=== PATIENT | female | born 1945 | race Caucasian/White ===

== ENCOUNTER 2017-08-19 10:17 | Outpatient (CLI) | payer MEDICARE, MEDICAID ==
[2017-08-19] MEDS ORDERED: Iopamidol 370 76% 100 ML VIAL ONE (15:02)
--- NOTE | 2017-08-19 15:42 | CT ---
CT ABDOMEN AND PELVIS WITH ORAL AND IV CONTRAST: Date: 08/19/17 HISTORY: Right upper quadrant pain since cholecystectomy in August 2016. Patient was premedicated for iodin e allergy. FINDINGS: There are no previous exams for comparison. The lung bases are unremarkable. The liver, spleen, pancreas, and adrenal glands are normal. There a re cysts in both kidneys, the largest measuring 6.9 cm in the right kidney. The patient is post chol ecystectomy and hysterectomy. No free air, free fluid, or lymphadenopathy is identified in the abdom en or pelvis. There are prominent abdominal lymph nodes measuring up to 9.0 mm in short axis diamete r in the left paraaortic region. No free air or free fluid is seen in the abdomen or pelvis. The sma ll bowel loops are not abnormally dilated. A normal appearing appendix is present. No pericolonic in flammatory changes are seen. There is fecal material in the colon. There are degenerative changes in the spine. Right hip arthroplasty is present. IMPRESSION: 1. No acute process. 2. Renal cysts. 3. Prominent abdominal lymph nodes. POS: [facility]
== END 2017-08-19 10:18 | disposition home or self-care (01) ==
LOC: CT 10:17
PROVIDERS: ATTEND Internal Medicine Gastroenterology
DX: K58.9 Irritable bowel syndrome, unspecified (principal); R10.11 Right upper quadrant pain; N28.1 Cyst of kidney, acquired
CPT/HCPCS: 74177

== ENCOUNTER 2017-11-12 11:54 | Inpatient (IN) | payer MEDICARE, MEDICAID ==
[2017-11-12 12:45] LABS: Bilirubin Negative (Negative); Blood, Urine Negative (Negative); Clarity Clear (Clear); Glucose, Urine (Dipstick) Negative (Negative); Leukocyte Negative (Negative); Nitrite Negative (Negative); Protein, Urine (Dipstick) Trace mg/dL (Neg-Trace); Urobilinogen 0.2 mg/dL (0.2-1.0); pH, Urine 5.5 (5.0-9.0)
[2017-11-12 12:51] LABS: Hemoglobin 7.3 g/dL (12.0-16.0); Mean Corpuscular HGB CONC 30.7 g/dL (32.0-36.0); Mean Corpuscular Hemoglobin 23.8 pg (27.0-31.0); Mean Corpuscular Volume 77.5 fl (81.0-99.0); Mean Platelet Volume 6.6 fL (7.4-10.4); Platelet Count 237 thou/uL (130-400); RBC Distribution Width 14.1 % (11.5-14.5); Red Blood Cell (RBC) Count 3.07 mill/uL (4.20-5.40); White Blood Cell (WBC) Count 5.6 thou/uL (4.8-10.8)
[2017-11-12 13:02] LABS: ALT (SGPT) 80 U/L (8-55); AST (SGOT) 85 U/L (5-34); Albumin 3.9 g/dL (3.4-4.8); Alkaline Phosphatase 260 U/L (40-150); Anion Gap 16 mmol/L (10-20); BUN (Urea Nitrogen) 9 mg/dL (9.8-20.1); Bilirubin, Total 0.3 mg/dL (0.2-1.2); Calc. Creatinine Clearance 0 mL/min (70-130); Calcium 9.4 mg/dL (7.8-10.44); Carbon Dioxide 24 mmol/L (23-31); Chloride 104 mmol/L (98-107); Estimated GFR-MDRD 87; Globulin 2.9 g/dL (2.4-3.5); Glucose 171 mg/dL (83-110); Lipase 8 U/L (8-78); Potassium 3.6 mmol/L (3.5-5.1); Protein, Total 6.8 g/dL (6.0-8.3); Sodium 140 mmol/L (136-145)
[2017-11-12 13:03] LABS: CKMB 0.7 ng/mL (0-6.6); Troponin I Less than 0.010 ng/mL (< 0.028)
[2017-11-12 13:04] LABS: #Lymphocytes 0.9 thou/uL (1.20-3.40); #Monocytes 0.4 thou/uL (0.11-0.59); #Neutrophils 4.3 thou/uL (1.40-6.50); %Basophils 0.3 % (0.0-1.0); %Eosinophils 0.3 % (0.0-10.0); %Lymphocytes 15.5 % (21.0-51.0); %Monocytes 6.8 % (0.0-10.0); %Neutrophils 77.2 % (42.0-75.0); Hypochromia SLIGHT = 6-15 cells (100X) (0-5/hpf); MDiff Complete? YES; Microcytosis SLIGHT = 6-15 cells (100X) (0-5/hpf); Ovalocytes SLIGHT = 2-5 cells (100X) (0-1/hpf); PLT Morphology Comment Appears Adequate
[2017-11-12] MEDS ORDERED: Ondansetron HCl/PF 4 MG/2 ML Vial ONE (13:09)
--- NOTE | 2017-11-12 14:26 | CT ---
CT OF ABDOMEN AND PELVIS: Date: 11-12-17 Comparison: 08-19-17 History: Right sided back pain, right hip pain. Technique: Serial axial CT imaging at 5 mm intervals from the lung bases through the pubic symphysis without contrast. Coronal reformatted imaging obtained. FINDINGS: the lack of contrast media limits assessment of the viscera, bowel vascular structures, and for lymph adenopathy. The imaged lung bases are unremarkable. There is a hip arthroplasty on the right, stable. There is no free intraperitoneal air. Cholecystectomy clips are present. Limited assessment of the liver and spleen is unremarkable. Limited assessment of the pancreas appears grossly unremarkable. The adrenal glands and the left kidn ey demonstrate a normal CT appearance. There is a stable prominent cyst in the right kidney, measurin g up to 7 cm. Neither kidney appears obstructed. There is a small inferior cystocele noted, stable. There is new nonspecific small volume abnormal free fluid in the pelvic cul-de-sac. Limited assessment of the bowel demonstrates no evidence for obstruction. There is nonspecific inflammatory stranding of the mesenteric fat within the right abdomen including the mesenteric fat inferior and adjacent to the duodenum. This fat stranding is new when compared to the prior exam. Suboptimal assessment of the duodenum without contrast media suggests a degree of duodenal wall thick ening versus under distention. Limited assessment for lymphadenopathy demonstrates findings suspicious for lymphadenopathy in the ga strohepatic ligament, measuring up to 1.4 cm in short axis dimension. There is increased soft tissue density in the portahepatis suggesting portahepatis adenopathy, including a node ventral to the IVC o n Image 18 measuring 2.2 cm in short axis dimension. There is a probable node posterior to the left l obe of the liver on Image 18 measuring 1.8 cm in short axis dimension. Enlarged left periaortic lymph nodes are noted, stable, measuring up to 1.4 cm in short axis dimensio n. There are scattered atherosclerotic calcifications of the abdominal aorta and its branches. Osseous s tructures appear demineralized. There is significant multilevel degenerative and post-operative orellana e within the lumbar spine. Soft tissue density is noted in the aortocaval region, suggesting adenopathy in these regions as well . There is a mesenteric mass in the right midabdomen on axial image 32 measuring 1.6 cm. IMPRESSION: 1. Inflammatory fat stranding is seen involving the mesenteric fat within the right abdomen. This sug gests nonspecific infectious or inflammatory change, possibly on the basis of duodenitis. 2. Enlarged lymph nodes within the abdomen/pelvis. Mesenteric mass in the mid right abdomen, suspicio us for metastatic disease or lymphoma. 3. Findings discussed with Dr. George at 1:45 p.m. 11-12-17. POS: [facility]
[2017-11-12] MEDS ORDERED: Pantoprazole 40 MG VIAL ONE (14:33)
[2017-11-12 16:24] VITALS: BMI 20.3
[2017-11-12] MEDS ORDERED: HYDROcodone/Acetaminophen 5/325 mg Tablet PO PRN ×3 (16:36→17:27)
[2017-11-12] MEDS ORDERED: Acetaminophen 325 MG TAB PO PRN ×2 (16:36→17:27)
[2017-11-12] MEDS ORDERED: Ondansetron ODT 4 MG TAB PO PRN (17:27)
[2017-11-12] MEDS ORDERED: Ondansetron HCl/PF 4 MG/2 ML Vial IVP PRN ×2 (17:27→19:10)
[2017-11-12] MEDS: HYDROcodone/Acetaminophen 10/325 mg Tablet PO PRN ×2 (18:00→21:32)
[2017-11-12] MEDS: Sodium Chloride 0.9% 1,000 ML IV SCH (18:00)
[2017-11-12] MEDS ORDERED: Ondansetron ODT 4 MG TAB SL PRN (19:10)
[2017-11-12] MEDS: Pantoprazole 40 MG VIAL IVP SCH (20:08)
[2017-11-12] MEDS: Zolpidem Tartrate 5 MG TAB PO SCH (20:08)
[2017-11-12] MEDS: Montelukast Sodium 10 mg Tablet PO SCH (20:08)
--- NOTE | 2017-11-12 21:28 | HP ---
PRIMARY CARE PHYSICIAN: Dr. Miranda. CHIEF COMPLAINT: Abdominal pain and generalized weakness. HISTORY OF PRESENT ILLNESS: Ms. Gibbs is a very pleasant 72-year-old female who has a history of hy pertension as well as fibromyalgia. She was in her usual state of health until recently. She began having worse and worse abdominal pain. She says it was primarily in the epigastric region and to the right side going to her back. She says it started about a year ago actually and says that she had h ad a cholecystectomy, thinking that would fix the problem. However, it did not, and she says after s he had her gallbladder removed, she continued to have the abdominal pain and then she started noticin g some black stools around that time as well. She said she did not know that there was anything wron g with that and so therefore did not think much of it. She says the stools are not necessarily tarry , but they can be normal, but just dark, sometimes she has diarrhea and it is black. She also notes a decrease in her appetite as well as having some nausea and she also says she has lost 50 pounds ove r the last year and had not been attempting to lose weight. She also says that she has been feeling extremely weak and not able to do the usual things that she typically does. She said she looked at h er color in the mirror and said that she is not usually does pale and because of these reason, she we nt to the emergency room for evaluation. In the ER, she was found to be anemic with a hemoglobin of 7.3. Her last hemoglobin being about 13 about a year ago and CT scan of the abdomen demonstrated toribio e inflammatory changes in the mesentery as well as inflammation of the duodenum and some adenopathy, which was concerning. She is being admitted for further evaluation. REVIEW OF SYSTEMS: Constitutional: There have been no fevers, chills, no night sweats, but she has had a 50-pound weight loss, which is unintentional. HEENT: She denies any headaches, no dizziness, no visual changes, no sore throat, no rhinorrhea, no neck pain, no adenopathy. Pulmonary: No hemopt ysis, no cough, no wheezing. Cardiovascular: She denies any chest pain, no shortness of breath, no PND, no orthopnea. Gastrointestinal: As the history of present illness. Genitourinary: No urinary frequency, hematuria, no hesitancy. Neurologic: No focal weakness, numbness, no seizures. Psychia tric: No symptoms of anxiety or depression except she says she had been depressed about her symptoms over the last year. Skin/Integument: No skin changes. No rash. PAST MEDICAL HISTORY: Significant for allergic rhinitis, gastroesophageal reflux disease, fatty live r, hypertension, fibromyalgia, chronic low back pain, Jjahcnn-Ytwmd-Wxlhi disorder, hyperlipidemia, a nd irritable bowel syndrome. PAST SURGICAL HISTORY: She has had a cholecystectomy, spinal surgery, hysterectomy, right hip replac ement, and tonsillectomy. ALLERGIES: NSAIDs, IODINE, LIDOCAINE, ALPRAZOLAM, EPINEPHRINE KENALOG which is TRIAMCINOLONE, CEPHAL EXIN, CIPROFLOXACIN, GABAPENTIN, PROCAINE, KETOROLAC, LEVAQUIN, and PREGABALIN. SOCIAL HISTORY: She is a nonsmoker, nondrinker. She is , has 4 children. FAMILY HISTORY: Significant for diabetes mellitus. CURRENT MEDICATIONS: Include Zyrtec, Cymbalta 30 mg daily, [place] 10/325 q.i.d. as needed for pain, l orazepam 0.5 mg as needed, Singulair 10 mg daily, Protonix 40 mg daily, and Ambien 10 mg at bedtime. PHYSICAL EXAMINATION: GENERAL: She is alert and oriented. She appears to be in no acute distress. VITAL SIGNS: Blood pressure was 164/68, heart rate 65, respiratory rate of 18, temperature is 98. HEENT: Her pupils are equal, round, and reactive. Extraocular muscles are intact. Her sclerae are anicteric. Throat: No erythema, no exudates. NECK: No adenopathy, no bruits. LUNGS: Clear. There is no wheezing, no rales. CARDIOVASCULAR: She has a normal S1 and S2. No S3 or S4. No murmurs, clicks or rubs. ABDOMEN: Soft. She had some epigastric as well as right upper quadrant tenderness, possible subcuta neous nodule that was palpable on the right side, right beneath the ribs in the ribcage on that side. There is no organomegaly. Bowel sounds are positive. EXTREMITIES: There is no edema. NEUROLOGICALLY: The exam is nonfocal. SIGNIFICANT LABORATORY DATA: White blood cell count 5.6, hemoglobin 7.3, hematocrit is 23.8, platele t count was 237. Sodium 140, potassium 3.6, chloride is 104, CO2 was 24, BUN of 9, creatinine 0.67, glucose is 171. Urinalysis was negative. CT findings, there was some inflammatory fat stranding see n in the mesenteric fat in the right abdomen, possibly on the basis of duodenitis. There are some en larged lymph nodes in the abdomen and pelvis and one in the right mid abdomen suspicious for metastat ic disease or lymphoma. ASSESSMENT AND PLAN: 1. Ms. Gibbs is a very pleasant 72-year-old female that presents to the emergency room with general ized weakness and abdominal pain and she has a microcytic anemia as well. She has not had a recent e ndoscopy, she says it has been about a year ago. Therefore, she will be admitted for possible acute blood loss. She will be admitted for blood loss anemia. Iron studies will be obtained and Gastroent erology will be consulted. She has been started on Protonix and we will continue this IV. 2. For the mesenteric adenopathy, apparently she has had a recent CAT scan demonstrating similar fin dings. We will defer the workup to suggestions by Gastroenterology since now there is a previous CT scan for comparison. 3. For the anemia, again iron studies will be obtained, showed her blood count fall below 7. She wi ll be transfused. 4. Hypertension. She says her blood pressure has been fairly well controlled. She thinks it elevat ed due to pain. We will treat with p.r.n. medications. We will hold off on Lovenox for GI prophylax is until her endoscopy and further recommendations will depend again on endoscopy findings and her GI evaluation.
[2017-11-13 04:48] LABS: #Monocytes 0.3 thou/uL (0.11-0.59); #Neutrophils 2.4 thou/uL (1.40-6.50); %Basophils 0.6 % (0.0-1.0); %Eosinophils 1.2 % (0.0-10.0); %Lymphocytes 26.5 % (21.0-51.0); %Monocytes 8.8 % (0.0-10.0); %Neutrophils 62.8 % (42.0-75.0); Hemoglobin 6.3 g/dL (12.0-16.0); Mean Corpuscular HGB CONC 30.7 g/dL (32.0-36.0); Mean Corpuscular Hemoglobin 24.9 pg (27.0-31.0); Mean Platelet Volume 7.3 fL (7.4-10.4); Platelet Count 208 thou/uL (130-400); RBC Distribution Width 14.1 % (11.5-14.5); Red Blood Cell (RBC) Count 2.55 mill/uL (4.20-5.40); White Blood Cell (WBC) Count 3.9 thou/uL (4.8-10.8)
[2017-11-13 05:13] LABS: Anion Gap 11 mmol/L (10-20); BUN (Urea Nitrogen) 9 mg/dL (9.8-20.1); Calc. Creatinine Clearance 77 mL/min (70-130); Carbon Dioxide 26 mmol/L (23-31); Chloride 105 mmol/L (98-107); Estimated GFR-MDRD Greater than 90; Glucose 99 mg/dL (83-110); Iron Less than 8 ug/dL (50-170); Iron Binding Capacity, Total 340 mcg/dL (265-497); Potassium 3.6 mmol/L (3.5-5.1); Sodium 138 mmol/L (136-145)
[2017-11-13] MEDS: DULoxetine 30 MG CAP PO SCH (08:53)
[2017-11-13] MEDS: HYDROcodone/Acetaminophen 10/325 mg Tablet PO PRN ×4 (08:53→22:22)
[2017-11-13] MEDS: Loratadine 10 MG TAB PO SCH (08:53)
[2017-11-13] MEDS: Pantoprazole 40 MG VIAL IVP SCH ×2 (08:53→21:04)
[2017-11-13] MEDS: Sodium Chloride 0.9% 1,000 ML IV SCH (09:02)
[2017-11-13] MEDS: GoLYTELY 4,000 ml Bottle PO SCH ×2 (12:35→18:37)
--- NOTE | 2017-11-13 13:28 | CON ---
DATE OF CONSULTATION: 11/13/2017 REQUESTING PHYSICIAN: Dr. Vazquez. REASON FOR CONSULTATION: Abnormal CT scan and anemia. HISTORY OF PRESENT ILLNESS: Ms. Christa Gibbs is a very pleasant 72-year-old woman, a patient of my GI colleague, Dr. Anirudh Burton. She has a history of fibromyalgia and fatty liver disease as well as IBS. Back in 07/2016, she underwent EGD and colonoscopy for some chronic abdominal pain and colon screening. The EGD was essentially unremarkable showing only mild gastritis and some benign gastric polyps, biopsied. The colonoscopy showed a tortuous colon, otherwise normal exam. She continued to have some right-sided abdominal pain and so in early 2016, underwent cholecystectomy. Unfortunately, this did not really impact her abdominal pain. She has followed up in our clinic over the past year with continued pain always on the right side of the abdomen. She had not really mentioned before, but she now states that her bowel movements are often very dark and sometimes black over the past year, her bowel pattern remains chronically irregular. She also seems to have lost 50 pounds over the past year and now on recent months has been getting progressively weak. She had an abdominal CT scan just 3 months ago, which demonstrated some nonspecific prominent abdominal lymph nodes, but otherwise no concerning findings. She presented to the hospital yesterday with worsening abdominal pain and weakness and was found to have significant iron deficiency anemia with admission hemoglobin down to 7.3, trending down to 6.3 this morning. Note, hemoglobin was about [address] A [address] of the abdomen and pelvis was performed and this demonstrates a 1.6 cm mesenteric mass concerning for metastatic disease versus lymphoma. She has worsened nonspecific abdominal lymphadenopathy as well as some nonspecific inflammatory stranding in the right mid abdomen. REVIEW OF SYSTEMS: Full review of systems including constitutional, head, eyes , ears, nose, throat, GI, , cardiovascular, respiratory, musculoskeletal, and neurologic systems is negative except as noted in the HPI. PAST MEDICAL HISTORY: Fibromyalgia, hypertension, hyperlipidemia, fatty liver disease, GERD, Sdompbj-Jifnb-Rvxfh disorder, irritable bowel syndrome. PAST SURGICAL HISTORY: Cholecystectomy, hysterectomy, back surgery, right hip replacement. ALLERGIES: NSAIDs, IODINE, LIDOCAINE, ALPRAZOLAM, EPINEPHRINE, TRIAMCINOLONE, CEPHALEXIN, CIPROFLOXACIN, GABAPENTIN, PROCAINE, KETOROLAC, LEVAQUIN, PREGABALIN. SOCIAL HISTORY: No smoking or alcohol use. FAMILY HISTORY: Significant for diabetes. OUTPATIENT MEDICATIONS: Zyrtec, Cymbalta, [place], lorazepam, Singulair, Protonix 40 mg daily, Ambien 10 mg at bedtime. PHYSICAL EXAMINATION: VITAL SIGNS: Temperature 98.7, pulse 69, blood pressure 119/70, 96% oxygen saturation on room air. GENERAL: A 72-year-old woman sitting up in a chair comfortably, in no acute distress. SKIN: She is pale, no jaundice, no rash visible or palpable. EYES: No scleral icterus. Extraocular movements intact. ENT: Mucous membranes moist, no oral lesions. LYMPH: No submandibular, supraclavicular lymphadenopathy. THYROID: Nontender to palpation. HEART: Regular rate and rhythm. LUNGS: Clear to auscultation bilaterally. ABDOMEN: Bowel sounds present, soft, tender to palpation in the right mid abdomen. There is no guarding or rebound tenderness. The tenderness seems to be in a very discrete area. I do not feel a palpable mass in that area though. EXTREMITIES: No peripheral edema. VESSELS: Radial pulses 2+ bilaterally. NEUROLOGICAL: Cranial nerves II through XII intact bilaterally. No focal deficits. LABORATORY STUDIES: Hemoglobin 6.3, MCV 81. WBC 3.9, platelets 208, BUN 9, creatinine 0.57. Ferritin 26, iron 8, TIBC 340. Total bilirubin 0.3, alkaline phosphatase 260, AST 85, ALT 80. Urinalysis negative. Lipase 8. Troponin negative. IMAGING STUDIES: CT of the abdomen and pelvis from yesterday 11/12/2017 as detailed in the HPI. ASSESSMENT AND PLAN: 1. Iron deficiency anemia. 2. Melena. 3. Abnormal CT scan of the GI tract, suggestive of mesenteric mass and abdominal lymphadenopathy. 4. Chronic right-sided abdominal pain. 5. Unintentional weight loss. Her constellation of findings is concerning for potential malignancy. This mesenteric mass was not really visualized on CT examination from just 3 months ago. She does have this new iron deficiency anemia. She had EGD and colonoscopy on 07/2016, but we do need to repeat EGD and colonoscopy at this time for workup of that lesion as well as her new anemia. We will plan for EGD and colonoscopy tomorrow after bowel preparation this evening. In the meantime, I agree with the IV PPI. Transfuse as needed. Thank you for the consultation. Please call with questions or concerns. DIANA
[2017-11-13] MEDS ORDERED: ALPRAZolam 0.5 MG TAB PO PRN (16:17)
--- NOTE | 2017-11-13 16:18 | PDOC.PN ---
- Subjective Encounter Start Date: 11/13/17 Encounter Start Time: 16:17 Ms. Gibbs was seen today in follow-up. She says she feels weak and a bit dizzy. She continues to have some abdominal pain. - Objective Resuscitation Status: Resuscitation Status FULL:Full Resuscitation MAR Reviewed: Yes Vital Signs & Weight: Vital Signs (12 hours) Temp Pulse Resp BP Pulse Ox 11/13/17 08:03 98.7 F 69 16 119/70 96 11/13/17 08:00 98.7 F 69 16 I&O: 11/12/17 11/13/17 11/14/17 06:59 06:59 06:59 Intake Total 1550 Balance 1550 Result Diagrams: 11/13/17 04:02 11/13/17 04:02 Phys Exam - Physical Examination HEENT: PERRLA Respiratory: no wheezing, no rales, no rhonchi, clear to auscultation bilateral Cardiovascular: RRR, no significant murmur Gastrointestinal: soft, non-tender, positive bowel sounds Musculoskeletal: no edema Dx/Plan (1) Microcytic anemia Code(s): D50.9 - IRON DEFICIENCY ANEMIA, UNSPECIFIED Status: Acute (2) Abdominal pain Code(s): R10.9 - UNSPECIFIED ABDOMINAL PAIN Status: Acute (3) Weight loss Status: Acute - Plan * Severe Iron deficiency anemia- will transfuse- and plan is for EGD and Colonoscopy tomorrow * Continue Protonix IV * Continue clear liquid diet.
[2017-11-13] MEDS: Zolpidem Tartrate 5 MG TAB PO SCH (21:04)
[2017-11-13] MEDS: Montelukast Sodium 10 mg Tablet PO SCH (21:04)
[2017-11-14] MEDS: Sodium Chloride 0.9% 1,000 ML IV SCH ×2 (02:38→07:15)
[2017-11-14 05:11] LABS: #Lymphocytes 0.9 thou/uL (1.20-3.40); #Monocytes 0.4 thou/uL (0.11-0.59); #Neutrophils 2.9 thou/uL (1.40-6.50); %Basophils 0.7 % (0.0-1.0); %Eosinophils 0.9 % (0.0-10.0); %Lymphocytes 21.2 % (21.0-51.0); %Monocytes 8.8 % (0.0-10.0); %Neutrophils 68.4 % (42.0-75.0); Hemoglobin 7.9 g/dL (12.0-16.0); Mean Corpuscular HGB CONC 30.8 g/dL (32.0-36.0); Mean Corpuscular Volume 81.3 fl (81.0-99.0); Mean Platelet Volume 7.7 fL (7.4-10.4); Platelet Count 219 thou/uL (130-400); RBC Distribution Width 14.1 % (11.5-14.5); Red Blood Cell (RBC) Count 3.18 mill/uL (4.20-5.40); White Blood Cell (WBC) Count 4.3 thou/uL (4.8-10.8)
[2017-11-14] MEDS: DULoxetine 30 MG CAP PO SCH (07:08)
[2017-11-14] MEDS: HYDROcodone/Acetaminophen 10/325 mg Tablet PO PRN ×4 (07:08→22:53)
[2017-11-14] MEDS: Pantoprazole 40 MG VIAL IVP SCH ×2 (07:09→20:06)
[2017-11-14] MEDS: Loratadine 10 MG TAB PO SCH (07:11)
[2017-11-14] MEDS ORDERED: Morphine 4 MG/ML VIAL ONE (10:58)
--- NOTE | 2017-11-14 16:16 | PDOC.PN ---
- Subjective Encounter Start Date: 11/14/17 Encounter Start Time: 16:14 Ms. Gibbs was seen today in folow-up. She does not have any new complaints. She continues to have pain in the right abdomen. - Objective Resuscitation Status: Resuscitation Status FULL:Full Resuscitation MAR Reviewed: Yes Vital Signs & Weight: Vital Signs (12 hours) Temp Pulse Resp BP Pulse Ox 11/14/17 12:45 98.3 F 69 16 126/49 L 100 11/14/17 09:49 98.1 F 78 16 125/68 97 11/14/17 08:00 98.1 F 78 16 127/73 95 I&O: 11/13/17 11/14/17 11/15/17 06:59 06:59 06:59 Intake Total 1550 350 Balance 1550 350 Result Diagrams: 11/14/17 03:56 11/13/17 04:02 Phys Exam - Physical Examination HEENT: PERRLA Respiratory: no wheezing, no rales, no rhonchi, clear to auscultation bilateral Cardiovascular: RRR, no significant murmur Gastrointestinal: soft, positive bowel sounds Right upper quandrant, and epigastric tenderness Musculoskeletal: no edema Dx/Plan (1) Microcytic anemia Code(s): D50.9 - IRON DEFICIENCY ANEMIA, UNSPECIFIED Status: Acute (2) Abdominal pain Code(s): R10.9 - UNSPECIFIED ABDOMINAL PAIN Status: Acute (3) Weight loss Status: Acute - Plan * Iron Deficiency Anemia- will start Iron therapy * Duodenal Mass- biopsy has been taken * Patient is aware of the EGD results, and says she would prefer to go home, and follow-up with the results as an Outpatient. her main concern was dealing with the pain while she is waiting- I have left a prescription for [place] in the chart, and she can be discharged if ok with GI..
--- NOTE | 2017-11-14 17:09 | OP ---
PREOPERATIVE DIAGNOSES: 1. Weight loss, severe iron deficiency anemia. 2. History of melena. 3. CAT scan with inflammatory mass in upper quadrant. Duodenal stranding. PROCEDURE PERFORMED: EGD with biopsy and colonoscopy diagnostic. POSTOPERATIVE DIAGNOSES: 1. Mass in the duodenum, second portion, it is unclear if this is a primary duodenal mass or somethi ng infiltrating from outside, areas were very firm and it was ulcerative likely source of bleeding. Multiple biopsies were taken. 2. Duodenum distal, this was normal. 3. The ampulla was not identifiable. 4. Mild gastritis, fundic gland polyps as previously noted on endoscopy in 08/2016. 5. Normal colonoscopy, normal ileum. RECOMMENDATIONS: Await histopathology. This is likely going to be malignancy, adenocarcinoma or lym phoma, likely need surgical consultation. ANESTHESIA: TIVA. PROCEDURE IN DETAIL: After the patient was informed of the risks, benefits, possible complications o f endoscopy including perforation, bleeding, reactions to medication and aspiration, informed consent was obtained. The patient brought to endoscopy suite where she was sedated in gradual fashion. Onc e she was comfortable, a bite block was placed in incisural orifice. The endoscope was advanced thro ugh the esophagus, stomach and second and third portion of duodenum and slowly removed. There was go od visualization of mucosa. The esophagus normal, stomach was notable for a few fundic gland polyps in the proximal stomach that have been noted on 08/2016. These were not biopsied or removed. The py lorus was normal. The duodenal bulb was normal. At the apex of the bulb into the second portion, th ere was circumferential narrowing with hardness of the duodenal wall in this area. At first, we coul d not pass. Multiple biopsies were taken. Ultimately, the scope was passed beyond this and the thir d and fourth portions of the duodenum appeared normal. There was no acute hemorrhage, but there was active oozing from the areas, more biopsies were taken and the second bottle submitted to pathology. Retroflexed views in the stomach were normal. The scope was removed. The patient tolerated the pro cedure well with no complications. The patient was turned and a rectal exam was performed, which was normal. The endoscope was advanced through anal canal, through the colon to cecum was identified by ileocecal valve and appendiceal radha fice. The ileum was entered. The scope was then slowly removed. The prep was fair. No mass, lesio ns were seen. No evidence of abnormalities, hepatic flexure, ascending or transverse colon were seen in relation to the CT scan findings have been seen. The descending, sigmoid, and rectum were normal in forward and retroflexed views. The scope was removed. The patient tolerated the procedure well with no complications.
[2017-11-14] MEDS: Ferrous Sulfate 325 MG TAB PO SCH (17:35)
[2017-11-14] MEDS: Zolpidem Tartrate 5 MG TAB PO SCH (20:06)
[2017-11-14] MEDS: Montelukast Sodium 10 mg Tablet PO SCH (20:06)
[2017-11-15] MEDS: Sodium Chloride 0.9% 1,000 ML IV SCH (03:10)
[2017-11-15] MEDS: HYDROcodone/Acetaminophen 10/325 mg Tablet PO PRN (07:38)
[2017-11-15] MEDS: DULoxetine 30 MG CAP PO SCH (07:39)
[2017-11-15] MEDS: Loratadine 10 MG TAB PO SCH (07:39)
[2017-11-15] MEDS: Ferrous Sulfate 325 MG TAB PO SCH (07:40)
[2017-11-15] MEDS: Pantoprazole 40 MG VIAL IVP SCH (07:40)
[2017-11-15 07:43] VITALS: BP 147/66; TEMP 98.3
--- NOTE | 2017-11-15 17:17 | DIS ---
PRIMARY CARE PHYSICIAN: Trey Miranda M.D. PRIMARY TRANSIT PLANNER: Anirudh Burton M.D. DISCHARGE DIAGNOSES: 1. Duodenal mass, pathology currently pending. 2. Gastroesophageal reflux disease. 3. Fatty liver disease. 4. Hypertension. 5. Fibromyalgia. 6. Chronic low back pain. 7. Brnrrjg-Ppngl-Eecqt disorder. 8 Hyperlipidemia, unspecified. 9. History of irritable bowel syndrome. 10. Allergic rhinitis. CONSULTATIONS: Gastroenterology; initially Dr. Scott Stevens on 11/13/2017, taken over by Dr. Skinny Burton on 11/14/2017 and 11/15/2017. PROCEDURES: Esophagogastroduodenoscopy on 11/14/[address] Burton. PENDING LABS: None. 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 HISTORY AND PHYSICAL: Ms. Gibbs is a 72-year-old female who presented to the emergency department o n 11/12/2017 with complaints of abdominal pain and weakness. Workup in the ER revealed normal vital signs, intractable abdominal pain, hemoglobin of 7.3, fairly normal chemistries, and CT that showed s ome inflammatory fat stranding in the mesenteric fat in the right side of the abdomen and possible du odenitis with some enlarged lymph nodes. We were consulted for admission. HOSPITAL COURSE: The patient was seen and examined. She was admitted to the hospital by Dr. Ozzie lentz on 11/12/2017. Gastroenterology was consulted. Serial H&H were obtained. She was started on P rotonix intravenously and patient was typed and crossed. Overnight 11/12/2017 and 11/13/2017, she re mained stable. She was seen by Gastroenterology who agreed that she needed upper endoscopy and that was arranged to be done on 11/14/2017. From medical perspective, her hemoglobins remained stable, bu t did drop from 7.6-6.3. She was transfused and continued on a clear liquid diet and IV Protonix. On 11/14/2017, she underwent endoscopy of the upper GI tract. Biopsies were taken with a probable ma lignancy. Pain control was achieved and decision to discharge in the following morning was made and she was watched overnight. Post-transfusion hemoglobin remained stable at 7.9. By today 11/15/2017, she was tolerating full liquid diet. She was advanced to regular and tolerated that as well. Pain was controlled well. 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 The patient was discharged with outpatient followup with Dr. Burton for final path ology results. PHYSICAL EXAMINATION: The patient was seen and examined on the day of discharge. Discharge plan and disposition were discussed with the patient [id number] at the bedside. DISCHARGE MEDICATIONS: 1. Pantoprazole 40 mg p.o. daily. 2. Cetirizine 10 mg daily. 3. Ambien 10 mg p.o. at bedtime p.r.n. 4. Singulair 10 mg p.o. at bedtime. 5. Ativan 0.5 mg p.o. daily p.r.n. anxiety. 6. Hydrocodone 10/325 q.i.d. p.r.n. No new prescription was given. 7. Duloxetine 30 mg p.o. daily. 8. Iron sulfate 325 mg p.o. b.i.d. Prescription sent. New prescription for [place] 10/[address] Burton. FOLLOWUP APPOINTMENTS: 1. Primary care physician Dr. Miranda within a week. 2. Dr. Burton in 2 weeks for pathology review. DISCHARGE DIET: Heart healthy recommended. DISCHARGE ACTIVITY: As tolerated. DISCHARGE CONDITION: Good. DISPOSITION: Discharged home via private vehicle for outpatient followup.
== END 2017-11-15 11:16 | disposition home or self-care (01) | DRG 375 ==
LOC: SCSER 11:54 → T4-B 14:17
PROVIDERS: ADMIT Internal Medicine; ATTEND Internal Medicine
PROC: 30233N1 Transfusion of Nonautologous Red Blood Cells into Peripheral Vein, Percutaneous Approach (ICD-10-PCS; 2017-11-13)
PROC: 0DB98ZX Excision of Duodenum, Via Natural or Artificial Opening Endoscopic, Diagnostic (ICD-10-PCS; principal; 2017-11-14)
PROC: 0DJD8ZZ Inspection of Lower Intestinal Tract, Via Natural or Artificial Opening Endoscopic (ICD-10-PCS; 2017-11-14)
DX: C17.0 Malignant neoplasm of duodenum (principal); K92.1 Melena; K76.0 Fatty (change of) liver, not elsewhere classified; G60.0 Hereditary motor and sensory neuropathy; D50.9 Iron deficiency anemia, unspecified; I10 Essential (primary) hypertension; K21.9 Gastro-esophageal reflux disease without esophagitis; E78.5 Hyperlipidemia, unspecified; M79.7 Fibromyalgia; M54.5 Low back pain; K58.9 Irritable bowel syndrome, unspecified; J30.9 Allergic rhinitis, unspecified; R63.4 Abnormal weight loss; Z68.20 Body mass index [BMI] 20.0-20.9, adult; R59.1 Generalized enlarged lymph nodes; K29.70 Gastritis, unspecified, without bleeding; K31.7 Polyp of stomach and duodenum
CPT/HCPCS: 36415; 36430; 74176; 80048; 80053; 81003; 82274; 82553; 82728; 83540; 83550; 83690; 84484; 85025; 86850; 86900; 86901; 88305; 88341; 88342; 96374; 96375; A4216; C9113; J2270; J2405; P9016

== ENCOUNTER 2017-11-22 18:20 | Emergency (ER) | payer MEDICARE, MEDICAID ==
[2017-11-22] MEDS ORDERED: Ondansetron HCl/PF 4 MG/2 ML Vial ONE (18:46)
[2017-11-22] MEDS ORDERED: Morphine 4 MG/ML Carpuject ONE (18:46)
[2017-11-22 19:08] LABS: #Lymphocytes 0.8 thou/uL (1.20-3.40); #Monocytes 0.4 thou/uL (0.11-0.59); #Neutrophils 4.2 thou/uL (1.40-6.50); %Basophils 0.8 % (0.0-1.0); %Eosinophils 0.3 % (0.0-10.0); %Lymphocytes 14.7 % (21.0-51.0); %Monocytes 7.3 % (0.0-10.0); %Neutrophils 76.8 % (42.0-75.0); Anisocytosis SLIGHT = 6-15 cells (100X) (0-5/hpf); Hemoglobin 8.3 g/dL (12.0-16.0); Hypochromia SLIGHT = 6-15 cells (100X) (0-5/hpf); MDiff Complete? YES; Mean Corpuscular HGB CONC 30.1 g/dL (32.0-36.0); Mean Corpuscular Hemoglobin 23.6 pg (27.0-31.0); Mean Corpuscular Volume 78.4 fl (81.0-99.0); Mean Platelet Volume 7.1 fL (7.4-10.4); Microcytosis SLIGHT = 6-15 cells (100X) (0-5/hpf); Ovalocytes SLIGHT = 2-5 cells (100X) (0-1/hpf); PLT Morphology Comment Appears Adequate; Platelet Count 285 thou/uL (130-400); RBC Distribution Width 15.9 % (11.5-14.5); Red Blood Cell (RBC) Count 3.49 mill/uL (4.20-5.40); White Blood Cell (WBC) Count 5.4 thou/uL (4.8-10.8)
[2017-11-22 19:11] LABS: ALT (SGPT) 88 U/L (8-55); AST (SGOT) 144 U/L (5-34); Albumin 3.7 g/dL (3.4-4.8); Alkaline Phosphatase 410 U/L (40-150); Anion Gap 17 mmol/L (10-20); BUN (Urea Nitrogen) 8 mg/dL (9.8-20.1); Bilirubin, Total 2.8 mg/dL (0.2-1.2); Calc. Creatinine Clearance 0 mL/min (70-130); Calcium 9.3 mg/dL (7.8-10.44); Carbon Dioxide 24 mmol/L (23-31); Chloride 99 mmol/L (98-107); Estimated GFR-MDRD Greater than 90; Globulin 3.1 g/dL (2.4-3.5); Glucose 110 mg/dL (83-110); Potassium 3.5 mmol/L (3.5-5.1); Protein, Total 6.8 g/dL (6.0-8.3); Sodium 136 mmol/L (136-145)
== END 2017-11-22 20:05 | disposition home or self-care (01) ==
LOC: SCSER 18:20
DX: R10.11 Right upper quadrant pain (principal); E78.5 Hyperlipidemia, unspecified; I10 Essential (primary) hypertension; G89.29 Other chronic pain; M19.90 Unspecified osteoarthritis, unspecified site; F41.9 Anxiety disorder, unspecified; F32.9 Major depressive disorder, single episode, unspecified; G47.00 Insomnia, unspecified; Z79.891 Long term (current) use of opiate analgesic; Z79.899 Other long term (current) drug therapy
CPT/HCPCS: 80053; 85025; 96374; 96375; J2270; J2405

== ENCOUNTER 2017-11-29 11:06 | Day surgery (SDC) | payer MEDICARE, MEDICAID ==
[2017-11-29] MEDS ORDERED: Sodium Chloride 0.9% 20 ML ONE (11:19)
[2017-11-29] MEDS ORDERED: Acetaminophen 500 MG TAB PO SCH (11:30)
[2017-11-29] MEDS ORDERED: diphenhydrAMINE 25 MG CAP PO SCH (11:30)
[2017-11-30] MEDS ORDERED: Acetaminophen 500 MG TAB PO SCH (11:45)
[2017-11-30] MEDS ORDERED: diphenhydrAMINE 25 MG CAP PO SCH (11:45)
== END 2017-11-29 16:04 | disposition home or self-care (01) ==
LOC: ONC/OP 11:06
PROVIDERS: ATTEND Internal Medicine Hematology & Oncology
PROC: 30233N1 Transfusion of Nonautologous Red Blood Cells into Peripheral Vein, Percutaneous Approach (ICD-10-PCS; principal; 2017-11-29)
DX: D64.9 Anemia, unspecified (principal); D69.6 Thrombocytopenia, unspecified; K21.9 Gastro-esophageal reflux disease without esophagitis; K76.0 Fatty (change of) liver, not elsewhere classified; I10 Essential (primary) hypertension; M79.7 Fibromyalgia; G89.29 Other chronic pain; E78.5 Hyperlipidemia, unspecified; J30.9 Allergic rhinitis, unspecified; G60.0 Hereditary motor and sensory neuropathy; K58.9 Irritable bowel syndrome, unspecified; Z91.041 Radiographic dye allergy status; Z88.6 Allergy status to analgesic agent; Z88.1 Allergy status to other antibiotic agents; Z88.8 Allergy status to other drugs, medicaments and biological substances; Z90.49 Acquired absence of other specified parts of digestive tract; Z90.710 Acquired absence of both cervix and uterus; Z96.641 Presence of right artificial hip joint; Z98.890 Other specified postprocedural states
CPT/HCPCS: 86850; 86870; 86900; 86901; 86905; 86922; A4216

== ENCOUNTER 2017-11-30 10:09 | Day surgery (SDC) | payer MEDICARE, MEDICAID ==
[2017-11-30] MEDS ORDERED: Acetaminophen 500 MG TAB PO SCH (12:15)
[2017-11-30] MEDS ORDERED: diphenhydrAMINE 25 MG CAP PO SCH (12:15)
[2017-11-30 15:46] VITALS: BP 131/60; TEMP 98.9
[2017-11-30 18:59] LABS: #Lymphocytes 0.9 thou/uL (1.20-3.40); #Monocytes 0.5 thou/uL (0.11-0.59); #Neutrophils 3.6 thou/uL (1.40-6.50); %Basophils 0.3 % (0.0-1.0); %Eosinophils 0.8 % (0.0-10.0); %Lymphocytes 17.5 % (21.0-51.0); %Neutrophils 71.4 % (42.0-75.0); Hemoglobin 11.4 g/dL (12.0-16.0); Mean Corpuscular HGB CONC 31.4 g/dL (32.0-36.0); Mean Corpuscular Hemoglobin 26.4 pg (27.0-31.0); Mean Platelet Volume 7.7 fL (7.4-10.4); Platelet Count 307 thou/uL (130-400); RBC Distribution Width 16.8 % (11.5-14.5); Red Blood Cell (RBC) Count 4.32 mill/uL (4.20-5.40)
== END 2017-11-30 18:48 | disposition home or self-care (01) ==
LOC: ONC/OP 10:09
PROVIDERS: ATTEND Internal Medicine Hematology & Oncology
PROC: 30233N1 Transfusion of Nonautologous Red Blood Cells into Peripheral Vein, Percutaneous Approach (ICD-10-PCS; principal; 2017-11-30)
DX: D64.9 Anemia, unspecified (principal); D69.59 Other secondary thrombocytopenia; K21.9 Gastro-esophageal reflux disease without esophagitis; K76.0 Fatty (change of) liver, not elsewhere classified; I10 Essential (primary) hypertension; M79.7 Fibromyalgia; M54.5 Low back pain; G89.29 Other chronic pain; G60.0 Hereditary motor and sensory neuropathy; E78.5 Hyperlipidemia, unspecified; K58.9 Irritable bowel syndrome, unspecified; Z79.899 Other long term (current) drug therapy; Z88.8 Allergy status to other drugs, medicaments and biological substances; Z88.6 Allergy status to analgesic agent; Z88.4 Allergy status to anesthetic agent; Z88.1 Allergy status to other antibiotic agents; Z91.041 Radiographic dye allergy status; Z96.641 Presence of right artificial hip joint; Z90.49 Acquired absence of other specified parts of digestive tract; Z90.89 Acquired absence of other organs; Z90.710 Acquired absence of both cervix and uterus; Z98.890 Other specified postprocedural states
CPT/HCPCS: 36415; 36430; 85025; 86850; 86870; 86900; 86901; 86905; 86922; P9016